=== PATIENT | female | born 1960 | race Caucasian/White ===

== ENCOUNTER → 2017-08-03 | Outpatient (CLI) | payer BC, OTHER ==
[~2017-08-03] MED LIST: ADVAIR 500-501 EACH IH; ADVAIR 500/501 DISK IH; ALLEGRA180 MG PO; AMBIEN10 MG PO; AMITIZA24 MICROGR PO; Ascorbic Acid,Ester- PO; BONIVA150 MG PO; CARAFATE1 GM PO; CELEBREX200 MG PO; COZAAR50 MG PO; CYMBALTA60 MG PO; DILAUDID4 MG PO; ENDOCET 5-3251 EACH PO; FLONASE16 GM NS; FOSAMAX70 MG PO; Fosamax PO; GEMFIBROZIL600 MG PO; GUAIFENESIN WI120 M1 PO; LEVAQUIN500 MG PO; LEVOTHYROX1 MCG/30 M PO; LEVOTHYROXINE SODIUM; NEXIUM20 MG PO; OXYCONTIN10 MG PO; PERCOCET 5/31 TABLET PO; PRAVASTATIN SOD80 MG PO; PREDNISONE20 MG PO; PROVENTIL,2.5 MG/0.5 IH; Proventil,Ventolin H IH; RAYOS5 MG PO; SINGULAIR10 MG PO; SPIRIVA1 INHALATI IH; STOOL SOFTENER100 M1 PO; SYNTHROID75 MCG PO; THEO-24300 MG PO; THEO-DUR,THEOC300 MG PO; VENTOLIN HFA18 GM IH; VICODIN 5-5001 EACH PO; VICODIN,LORT1 TABLET PO; WELCHOL625 MG PO; XALATAN2.5 ML BOTH EYES
== END | disposition home or self-care (01) ==
DX: R26.2 Difficulty in walking, not elsewhere classified (principal); M25.561 Pain in right knee; M25.661 Stiffness of right knee, not elsewhere classified; M62.81 Muscle weakness (generalized); M17.11 Unilateral primary osteoarthritis, right knee; Z74.1 Need for assistance with personal care; Z74.09 Other reduced mobility
CPT/HCPCS: 97161 GP; 97165 GO; 97530 GP; 97537 GO; G8978 GP; G8979 GP; G8980 GP; G8987 GO; G8988 GO; G8989 GO

== ENCOUNTER 2017-08-09 21:58 | Inpatient (IN) | payer BC, OTHER ==
[~2017-08-09] VITALS: Ht 166.4 cm; Wt 85.4 kg
[2017-08-10 07:17] VITALS: BP 148/76
[2017-08-10 09:56] VITALS: BP 113/68
[2017-08-10 10:23] LABS: HEMATOCRIT 36.3 % (36.0-46.0); MCH 31.7 PG (29.0-34.0); MCV 90.5 FL (83-99); MEAN PLAT.VOLUME 10.4 uM^3 (9.5-12.4); PLATELET COUNT 354 K/uL (156-360); RBC DIS.WIDTH-CV 11.9 % (11.8-14.6); RBC DIS.WIDTH-SD 39.3 % (39-53); RED BLOOD COUNT 4.01 M/uL (3.80-5.20); WHITE BLOOD COUNT 7.8 K/uL (4.1-10.2)
[2017-08-10 14:02] VITALS: BP 112/60
[2017-08-10 15:50] VITALS: BP 138/78
[2017-08-10 20:15] VITALS: BP 179/90
[2017-08-11 00:07] VITALS: BP 139/88
[2017-08-11 04:52] VITALS: BP 157/87
[2017-08-11 06:44] LABS: HEMATOCRIT 35.7 % (36.0-46.0); MCV 88.1 FL (83-99)
[2017-08-11 06:55] LABS: ANION GAP 10 MEQ/L (2-14); CHLORIDE 98 MEQ/L (99-109); GFR ESTIMATE (CALCULATED) > 59 mL/min/; GLUCOSE 105 mg/dL (70-99); SAMPLE HEMOLYSIS CHECK 0; SAMPLE ICTERIC CHECK 0; SAMPLE LIPEMIA CHECK 0; UREA NITROGEN (BUN) 10 mg/dL (9-23)
[2017-08-11 06:56] LABS: POTASSIUM 3.3 MEQ/L (3.7-5.4); SODIUM 132 MEQ/L (136-147)
[2017-08-11 08:00] VITALS: BP 143/63
[2017-08-11 12:18] VITALS: BP 139/75
[2017-08-11 16:03] VITALS: BP 129/66
[2017-08-11 20:22] VITALS: BP 111/53
[2017-08-12 00:17] VITALS: BP 93/54
[2017-08-12 04:10] VITALS: BP 105/57
[2017-08-12 06:07] LABS: HEMATOCRIT 32.6 % (36.0-46.0); MCV 88.1 FL (83-99)
[2017-08-12 08:23] VITALS: BP 119/70
[2017-08-12] MEDS ORDERED: ENDOCET 5-3251 EACH PO (08:40)
[2017-08-12] MEDS ORDERED: LOVENOX40 MG/0.4 SC (08:40)
[2017-08-12 12:00] VITALS: BP 117/57
== END 2017-08-12 13:59 | DRG 470 ==
LOC: ENRESERV 21:58 → 2SOUTH 08-10 05:32 → 3WEST 08-10 09:42 → 2SOUTH 08-10 11:15 → 3WEST 08-12 13:59
PROVIDERS: Orthopaedic Surgery
PROC: 0SRC0J9 Replacement of Right Knee Joint with Synthetic Substitute, Cemented, Open Approach (ICD-10-PCS; principal; 2017-08-10)
DX: M17.11 Unilateral primary osteoarthritis, right knee (principal); E78.5 Hyperlipidemia, unspecified; F32.9 Major depressive disorder, single episode, unspecified; G47.30 Sleep apnea, unspecified; E07.9 Disorder of thyroid, unspecified; J45.909 Unspecified asthma, uncomplicated; K21.9 Gastro-esophageal reflux disease without esophagitis; H40.9 Unspecified glaucoma; M81.0 Age-related osteoporosis without current pathological fracture; K59.00 Constipation, unspecified; Z96.652 Presence of left artificial knee joint; G47.33 Obstructive sleep apnea (adult) (pediatric); J44.9 Chronic obstructive pulmonary disease, unspecified; G47.00 Insomnia, unspecified; E03.9 Hypothyroidism, unspecified; I10 Essential (primary) hypertension; Z90.710 Acquired absence of both cervix and uterus
CPT/HCPCS: 73560; 80048; 80198; 85014; 85018; 85027; 94640; 94640 76; 99202; C1713; J0690; J1100; J1170; J1650; J2250; J2405; J3010; J7050; Q0175

== ENCOUNTER 2018-01-15 11:12 | Emergency (ER) | payer BC, OTHER ==
[~2018-01-15] VITALS: Ht 166.4 cm; Wt 79.4 kg
[~2018-01-15 11:12] MED LIST changes: +LOVENOX40 MG/0.4 SC
[2018-01-15] MEDS ORDERED: PERCOCET 5/31 TABLET PO (16:29)
[2018-01-15] MEDS ORDERED: MOTRIN800 MG PO (16:29)
[2018-01-15 17:00] VITALS: BP 130/98
== END 2018-01-15 17:02 | disposition home or self-care (01) ==
LOC: EME 11:12
DX: S52.301A Unspecified fracture of shaft of right radius, initial encounter for closed fracture (principal); S52.201A Unspecified fracture of shaft of right ulna, initial encounter for closed fracture; W01.0XXA Fall on same level from slipping, tripping and stumbling without subsequent striking against object, initial encounter; Y93.89 Activity, other specified; E78.5 Hyperlipidemia, unspecified; E03.9 Hypothyroidism, unspecified; G47.30 Sleep apnea, unspecified; M81.0 Age-related osteoporosis without current pathological fracture; M19.90 Unspecified osteoarthritis, unspecified site; Z90.49 Acquired absence of other specified parts of digestive tract; Z96.652 Presence of left artificial knee joint; Z88.5 Allergy status to narcotic agent
CPT/HCPCS: 73090; 73100; 73110; 99281; 99285; J3010; J7040